=== PATIENT | female | born 1970 | race Caucasian/White ===

== ENCOUNTER → 2024-01-08 11:27 | Outpatient (REF) | payer BC, SELFPAY | LOC: RAD 11:27 | PROVIDERS: ATTENDING PHYSICIAN Obstetrics & Gynecology Gynecology; FAMILY PHYSICIAN Family Medicine | DX: N95.0 Postmenopausal bleeding (principal) | CPT/HCPCS: 76830; 76856 ==

== ENCOUNTER → 2024-03-24 12:40 | Outpatient (REF) | payer BC, SELFPAY | LOC: WDC 12:40 | PROVIDERS: ATTENDING PHYSICIAN Obstetrics & Gynecology; FAMILY PHYSICIAN Family Medicine | DX: Z12.31 Encounter for screening mammogram for malignant neoplasm of breast (principal) | CPT/HCPCS: 77063; 77067 ==

== ENCOUNTER → 2025-03-28 13:27 | Outpatient (REF) | payer BC, SELFPAY | LOC: WDC 13:27 | PROVIDERS: ATTENDING PHYSICIAN Advanced Practice Midwife; FAMILY PHYSICIAN Family Medicine | DX: Z12.31 Encounter for screening mammogram for malignant neoplasm of breast (principal) | CPT/HCPCS: 77063; 77067 ==